=== PATIENT | female | born 1955 | race Asian ===

== ENCOUNTER 2017-10-26 13:39 | Emergency (ER) | payer BC ==
[~2017-10-26] VITALS: Ht 152.4 cm; Wt 59.0 kg
[2017-10-26 13:44] VITALS: BP_SYST 157
[2017-10-26] MEDS ORDERED: EPINEPHrine JECT 1 MG/10 ML SYR IM ONE (14:45)
[2017-10-26] MEDS ORDERED: DIPHENHYDRAMINE INJ 50 MG/ML VIAL IVP ONE (14:45)
[2017-10-26] MEDS ORDERED: methylPREDNISolone SOD SUCC/PF 62.5 MG/ML VIAL IVP ONE (14:45)
[2017-10-26] MEDS ORDERED: EPINEPHrine 1 MG/ML AMP SUBCUT ONE ×2 (15:15)
[2017-10-26 15:16] LABS: CALCIUM 8.3 mg/dL (8.4-11.0); CREATININE 0.96 mg/dL (0.55-1.30); POTASSIUM 3.2 mmol/L (3.5-5.1)
[2017-10-26 15:21] LABS: ALBUMIN 3.4 g/dL (3.4-4.8); TOTAL BILIRUBIN 0.1 mg/dL (0.0-1.0)
[2017-10-26] MEDS ORDERED: EPINEPHrine 1 MG/ML AMP ONE (15:21)
[2017-10-26 16:19] LABS: BASOPHILS % (AUTO) 0.3 % (0.0-2.0); EOSINOPHILS # (AUTO) 0.2 K/uL (0.0-0.4); EOSINOPHILS % (AUTO) 1.9 % (0.0-4.0); HEMATOCRIT 41.6 % (36-48); HEMOGLOBIN 13.6 g/dL (12.0-16.0); LYMPHOCYTES # (AUTO) 2.7 K/uL (1.0-5.5); LYMPHOCYTES % (AUTO) 33.8 % (20.5-51.5); MEAN CORPUSCULAR HEMOGLOBIN 28 pg (27-31); MEAN CORPUSCULAR HGB CONC 33 % (32-36); MEAN CORPUSCULAR VOLUME 85 fL (79.0-98.0); MONOCYTES # (AUTO) 0.5 K/uL (0.0-1.0); MONOCYTES % (AUTO) 6.1 % (1.7-9.3); NEUTROPHILS # (AUTO) 4.7 K/uL (1.8-7.7); NEUTROPHILS % (AUTO) 57.9 % (40.0-70.0); PLATELET COUNT (AUTO) 455 K/uL (130-430); RED BLOOD CELL COUNT(AUTO) 4.88 MIL/uL (4.2-6.2); RED CELL DISTRIBUTION WIDTH 11.9 % (9.0-15.0); WHITE BLOOD COUNT (AUTO) 8.1 K/uL (4.8-10.8)
[2017-10-26] MEDS ORDERED: POTASSIUM CHLORIDE 20 MEQ TAB.PRT.SR PO ONE (18:30)
[2017-10-26 18:58] VITALS: BP_SYST 144
== END 2017-10-26 18:58 | disposition home or self-care (01) ==
LOC: SED 13:39
DX: T78.40XA Allergy, unspecified, initial encounter (principal); Z90.49 Acquired absence of other specified parts of digestive tract; X58.XXXA Exposure to other specified factors, initial encounter
CPT/HCPCS: 36415; 80053; 85025; 96372; 96374; 96375; 99284; J0171; J1200; J2930

== ENCOUNTER 2022-09-23 06:51 | Emergency (ER) | payer BC, OTHER ==
[~2022-09-23] VITALS: Ht 152.4 cm; Wt 61.2 kg
[2022-09-23 06:57] VITALS: BP_SYST 129
--- NOTE | 2022-09-23 07:02 | NUR ---
X-Ray at bedside.
--- NOTE | 2022-09-23 07:02 | NUR ---
Pt BIBA BLS coming from work due to c/o tripping and falling at work. Pt states she landed on her right knee and hit her head. No LOC. There is noted slight bruising on left eye. No deformity noted. Pt able to move all extremities and no loss of sensation. Pupils PERRLA. A&Ox4. VSS. Skin intact. Has hx of DM, HTN, and Hyperlipidemia. NKA. No chest pain and no sob. Denies n/v. Bed in lowest position.
--- NOTE | 2022-09-23 07:02 | NUR ---
Patient to ER bed 3 to gown for evaluation. Side rails up.
--- NOTE | 2022-09-23 07:08 | NUR ---
Report given to Pablo JUNIOR.
--- NOTE | 2022-09-23 07:08 | NUR ---
Dr. Carpenter at bedside.
[2022-09-23] MEDS ORDERED: KETOROLAC TROMETHAMINE 60 MG/2 ML VIAL IM ONE (07:15)
[2022-09-23] MEDS ORDERED: IBUP-1969 PO (07:18)
[2022-09-23 09:11] VITALS: BP_SYST 130
--- NOTE | 2022-09-23 09:13 | NUR ---
Patient given written and verbal discharge instructions and verbalizes understanding. ER MD discussed with patient the results and treatment provided. Patient in stable condition. ID arm band removed. Rx of given. Patient educated on pain management and to follow up with PMD. Opportunity for questions provided and answered. Medication side effect fact sheet provided.
== END 2022-09-23 09:13 | disposition home or self-care (01) ==
LOC: SED 06:51
DX: M25.561 Pain in right knee (principal); E11.9 Type 2 diabetes mellitus without complications; I10 Essential (primary) hypertension; Z79.899 Other long term (current) drug therapy
CPT/HCPCS: 99283; 73564; 96372; J1885